=== PATIENT | male | born 1960 | race Caucasian/White ===

== ENCOUNTER 2021-11-13 12:30 | Outpatient (CLI) | payer OTHER, SELFPAY ==
--- NOTE | ~2021-11-13 | MR_ITS ---
EXAMINATION: MR brain/brain stem wo/w con DATE: 11/13/2021 13:34 INDICATION: Lung mass. TECHNIQUE: Magnetic resonance imaging (MRI) of the brain and brainstem was performed without and with 19 mL MultiHance intravenous contrast. Sequences included sagittal and axial T1-weighted FSE, axial diffusion-weighted FS EPI, axial T2*-weighted GRE, axial T2-weighted FLAIR Propeller, and axial T2-we ighted Propeller. Postcontrast sequences included axial, sagittal, and coronal T1-weighted FSE. Appar ent diffusion coefficient (ADC) maps were created. COMPARISON: None. FINDINGS: There is chronic encephalomalacia in the central myranda with relative sparing of the corticos heavenly tracts. There are scattered areas of nonspecific increased T2-weighted signal intensity in the cerebral white matter, which is within normal limits for the patient's age. There is no intracranial hemorrhage, acute infarction, or abnormal intracranial mass lesion. The ventricles are normal in size . There is mucosal thickening in the paranasal sinuses. The orbits are normal. The mastoid air cells are normal. IMPRESSION: 1. No evidence of metastatic disease. 2. 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 Reviewed, dictated and finalized at location A. NCT PROFESSOR OF VOICE IMPRESSION: 1. No evidence of metastatic disease. 2. 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
--- NOTE | ~2021-11-13 | PE_ITS ---
EXAMINATION: PET skull to mid thigh DATE: 11/13/2021 15:11 INDICATION: Lung mass TECHNIQUE: Blood glucose level was 81 mg/dL. 11.629 mCi of 18-fluorodeoxyglucose (18-FDG) was adminis tered i.v. Low dose computed tomography (CT) images were acquired from the base of the brain to the p roximal thighs for attenuation correction and anatomic localization. Positron emission tomography (PE T) images were acquired in the same distribution beginning 50-57 minutes after injection. Images incl uding fused PET/CT images were reconstructed in axial, coronal, and sagittal planes. Automated exposu re control technique was employed. The dose-length product was 906.11mGy-cm. COMPARISON: None FINDINGS: Head/neck: There is symmetric increased activity in the oral cavity, palatine tonsils, parotid glands, submandi bular glands, laryngeal muscles and ocular muscles without CT correlate, likely physiologic. Likely s inus disease associated mild increased uptake in the left maxillary sinus with corresponding mucosal thickening and small amount of dependently layering fluid. Mild increased Small focus of increased up take with maximal SUV of 3.5 situated in the right parotid gland. Correlation with recent brain MR da daryl 11/13/2021 demonstrates a 5 mm intraparotid lymph node with central fatty hilum at this location. No pathologically enlarged cervical lymphadenopathy or other suspicious foci of increased FDG uptake in the visualized head or neck. Chest: 6.5 x 5.7 cm FDG avid mass in the right lower lobe with maximal SUV of 18.9 consistent with primary b ronchogenic carcinoma. There are some FDG avid lymph nodes in the adjacent right hilum and subcarinal region with maximal SUV values of 15.9 and 10.2 respectively. There is likely secondary postobstruct anthony atelectasis at the anterobasilar segment of the right lower lobe. Subtle tree-in-bud opacities in the basilar right lower lobe peripheral to the mass could represent additional atelectasis and/or po st obstructive pneumonia. Left lung is clear. No pleural effusion. Heart size is normal. Atherosclero tic coronary artery calcific lesions. No pericardial effusion. Thoracic aorta is normal in caliber. Abdomen/pelvis/proximal thighs: There are at least 14 hypodense FDG avid masses scattered throughout the liver consistent with metast atic disease. The largest measures approximately 4 cm in the left hepatic lobe with maximal SUV of 18 .5. Physiologic renal accumulation and excretion of FDG activity in the kidneys, bladder and along po rtions of ureters. Indeterminate 1.4 cm exophytic soft tissue density lesion arising from the upper p ole of the left kidney without evident corresponding FDG activity statistically most likely to repres ent a proteinaceous/hemorrhagic cyst. The gallbladder, pancreas, spleen and bilateral adrenal glands are normal. Mild uptake scattered throughout the bowels without radiologic correlate, also likely phy siologic. No other abnormal foci of increased FDG uptake or pathologically enlarged lymphadenopathy i n the abdomen, pelvis or proximal thighs. Musculoskeletal: There are multiple FDG avid likely metastatic bone lesions, several of which are occult on CT but sev eral with corresponding lytic lesions including at the right transverse process of L5, right pedicle of T2, left transverse process of T3 and the adjacent posterior left third rib, lateral left 11th rib with associated pathologic fracture. IMPRESSION: 1. Marked FDG uptake associated with a 6.5 x 5.7 cm right lower lobe mass concerning for primary bron chogenic carcinoma. 2. FDG avid right hilar and subcarinal lymph nodes along with multiple FDG avid hepatic masses and mu ltiple FDG avid bone lesions all consistent with metastatic disease. 3. Tree-in-bud pattern at the basilar right lower lobe peripheral to the mass which could represent p ostobstructive atelectasis and/or pneumonia.
[2021-11-13 13:03] LABS: Estimated Glomerular Filt Rate > 60
[2021-11-17 10:16] LABS: Glucose Point of Care 81 mg/dl (65-105)
== END 2021-11-13 12:31 | disposition home or self-care (01) ==
PROVIDERS: Visit Provider Internal Medicine Hematology & Oncology
DX: R91.8 Other nonspecific abnormal finding of lung field (principal)
CPT/HCPCS: 70553; 78815; A9552; A9577

== ENCOUNTER 2021-11-27 03:17 | Outpatient (CLI) | payer BC, SELFPAY ==
[2021-11-20 10:58] VITALS: BMI 31.1
--- NOTE | 2021-11-20 11:11 | PC.NURSE ---
Report to the Outpatient Waiting Room, entrance under the green pavilion located off [facility], at time 0900 on date 11/27/21. OR Time: 1100. - You will be asked a series of questions to screen for COVID 19 for your protection. - A mask is required within the hospital. - No visitors are allowed at this time. Patient visitors will be guided where to wait when not with patient. Preoperative COVID Testing Requirements: TO BRING COVID CARD DOS No COVID Test needed if: (proof is required; if not received patient will have Rapid Test prior to entry) - Patient has received COVID Vaccine at least 14 days prior to procedure date or - Patient has positive COVID test result within last 90 days of surgery date. COVID Test needed if above criteria is not met If not COVID vaccinated a COVID test must be conducted within 72 hours of surgery and patient is asked to isolate self from time of testing until procedure. You will go to the [facility] for your COVID testing. The [facility] is located at the corner of [address] [facility]. You will only be called if COVID results are positive and your surgeon may reschedule your elective surgery date. - No food OR DRINK FOR 6 HOURS PRIOR TO PROCEDURE Take the following medications with a SIP of water the morning of surgery: NONE Medications to discontinue per physician: ASPIRIN Date to take last dose: 11/20/21 Please no make-up, nail lao, hairspray, perfume, deodorant, or body powder the day of surgery. No jewelry (including any body piercings) or valuables the day of surgery, leave them at home. Please take a shower or bath the night before, or the morning of, surgery with an antibacterial soap. Wear comfortable, loose fitting clothing. - Jewelry must be removed prior to entering the operating room. Rings and piercings that are not removed may be cut off. - The hospital will not accept responsibility for valuables. - Please leave all valuables, including medications, at home the day of surgery. If you are going home after surgery, a licensed team truck driver must drive you home. - NO public transportation without another adult. - We recommend that an adult stay with you for 24 hours following discharge. - We also recommend that you do not drive, make important decision, drink alcoholic beverages, or take any drugs that were not prescribed by your health care provider for at least 24 hours after your discharge time. Follow any additional instructions given to you from your surgeon. Telephone instructions given to SEAN DIXON and asked if any additional questions and then verbalized understanding. Patient advised to call surgeon office or pre surgery nurse liaison [phone] if any additional questions.
--- NOTE | 2021-11-26 17:08 | SUR.PREOP ---
patient was called to arrive at 830 on Nov 27 for appointment
[2021-11-27] VITALS (7 sets, daily range): BP systolic 144–160; BP diastolic 70–85; PULSE 78–86; RESP 16; BMI 31.2
--- NOTE | ~2021-11-27 | US_ITS ---
EXAMINATION: US biopsy liver DATE: 11/27/2021 10:53 INDICATION: Liver mass. TECHNIQUE: The procedure including the risks, benefits, and alternatives was discussed with the patie nt. Risks discussed included bleeding and infection. The patient understood the risks and agreed to p roceed. The skin overlying the left hepatic lobe was prepped and draped in usual sterile fashion. An esthetic was administered with 1% lidocaine subcutaneously. An 18 gauge core biopsy needle was then used to obtain 3 core biopsy specimens under continuous sonographic guidance. The entry site was jack an and dressed. There were no immediate complications. FINDINGS: Ultrasound images demonstrate the needle in a 3.7 cm mass in left hepatic lobe. IMPRESSION: 1. Ultrasound-guided core needle biopsy of a mass in left hepatic lobe. Reviewed, dictated and finalized at location A. CULTURAL EXTENSION EDUCATOR
[2021-11-27 09:57] LABS: Mean Platelet Volume 8.8 fl (7.4-10.4); Platelet Count Result 293 k/mm3 (150-375)
[2021-11-27 10:01] LABS: INR 1.1; Prothrombin Time 13.7 Seconds (11.1-14.7)
[2021-11-27] MEDS: IBUPROFEN 600 MG TABLET PO (11:08)
--- NOTE | 2021-11-27 14:28 | SUR.PHASEII ---
[address] murry on patient status. vital signs stable, room air, no pain or drainage from biopsy site. dr murry is ok for patient to be discharged early.
== END 2021-11-27 14:25 | disposition home or self-care (01) ==
PROVIDERS: PCP Pediatrics; Visit Provider Radiology Diagnostic Radiology
DX: C22.8 Malignant neoplasm of liver, primary, unspecified as to type (principal); R16.0 Hepatomegaly, not elsewhere classified
CPT/HCPCS: 36415; 47000; 76942; 85049; 85610; 88307; 88342; A9270

== ENCOUNTER 2021-12-09 01:23 | Day surgery (SDC) | payer BC, SELFPAY ==
[2021-12-08 09:19] VITALS: BMI 31.2
--- NOTE | 2021-12-08 09:28 | PC.NURSE ---
Report to the Outpatient Waiting Room, entrance under the green pavilion located off [facility], at time 1100 on date 12/09/21. OR Time: 1300. - You will be asked a series of questions to screen for COVID 19 for your protection. - A mask is required within the hospital. - No visitors are allowed at this time. Preoperative COVID Testing Requirements: No COVID Test needed if: (proof is required; if not received patient will have Rapid Test prior to entry) - Patient has received COVID Vaccine at least 14 days prior to procedure date or - Patient has positive COVID test result within last 90 days of surgery date. COVID Test needed if above criteria is not met Patients may have clear liquids (water, carbonated beverages, clear teas, apple juice) until 3 hours prior to surgery with a maximum of 20 ounces. - No food from midnight until time of surgery Take the following medications with a SIP of water the morning of surgery: INHALER (IF NEEDED), FLUOXETINE, GABAPENTIN, PAIN PILL (IF NEEDED) Medications to discontinue per physician: VITAMINS/SUPPLEMENTS Date to take last dose: NO MORE UNTIL AFTER SURGERY Please no make-up, nail yakut, hairspray, perfume, deodorant, or body powder the day of surgery. No jewelry (including any body piercings) or valuables the day of surgery, leave them at home. Please take a shower or bath the night before, or the morning of, surgery with an antibacterial soap. Wear comfortable, loose fitting clothing. - Jewelry must be removed prior to entering the operating room. Rings and piercings that are not removed may be cut off. - The hospital will not accept responsibility for valuables. - Please leave all valuables, including medications, at home the day of surgery. If you are going home after surgery, a licensed taxicab driver must drive you home. - NO public transportation without another adult. - We recommend that an adult stay with you for 24 hours following discharge. - We also recommend that you do not drive, make important decision, drink alcoholic beverages, or take any drugs that were not prescribed by your health care provider for at least 24 hours after your discharge time. Follow any additional instructions given to you from your surgeon. Telephone instructions given to SEAN DIXON and asked if any additional questions and then verbalized understanding. Patient advised to call surgeon office or pre surgery nurse liaison [phone] if any additional questions.
--- NOTE | 2021-12-08 13:40 | P.PNAN_ITS ---
Anes - Initial Pre Proc Eval Procedure: Operation Date: 12/09/21 13:00 Proposed Procedures p Insertion Carito Cath - Ainsley Latif MD Date/Time: 12/08/21 13:40 Surgeon: Ainsley Latif MD Pre Op Diagnosis: non small cell lung cancer Patient Data Age: 61 Gender: M Height: 1.75 m Weight: 96 kg Allergies Allergy/AdvReac Type Severity Reaction Status Date / Time No Known Allergies Allergy Verified 12/09/21 11:20 Home Medications Medication Instructions Recorded Confirmed Type albuterol sulfate 2 puff INHALATION HS 11/20/21 12/09/21 History aspirin [Baby Aspirin] 81 mg PO DAILY 11/20/21 12/09/21 History atorvastatin 10 mg PO DAILY 11/20/21 12/09/21 History calcium carbonate [Calcium 500] 500 mg PO BID 11/20/21 12/09/21 History cholecalciferol (vitamin D3) 25 mcg PO DAILY 11/20/21 12/09/21 History [Vitamin D3] docusate sodium [Dulcolax Stool 100 mg PO DAILY PRN 11/20/21 12/09/21 History Softener (dss)] enalapril maleate 20 mg PO BID 11/20/21 12/09/21 History esomeprazole magnesium 40 mg PO DAILY 11/20/21 12/09/21 History fluoxetine 20 mg PO DAILY 11/20/21 12/09/21 History gabapentin 100 mg PO TID 11/20/21 12/09/21 History hydrocodone-acetaminophen 1 tablet PO Q4H PRN 11/20/21 12/09/21 History ibuprofen 600 mg PO Q6H PRN 11/20/21 12/09/21 History multivitamin 1 tablet PO DAILY 11/20/21 12/09/21 History oxycodone [OxyContin] 10 mg PO BID 11/20/21 12/09/21 History Patient hx anesthesia problems: none Family hx anesthesia problems: none Results Review: All pre-operative results and documents have been reviewed as part of the pre-operative evaluation. PENDING SALE TO [facility] Past Medical History Medical History Anxiety Chronic GERD Chronic narcotic use Depression HTN (hypertension) Hyperlipidemia Lung cancer Obesity Osteoarthritis Smoker Social History Social History (System 04/22/20 @ 08:22 by Demetrius Hunt) Smoking packs per day: 1 Smoking cigarettes per day: 20.0 Years smoked: 35 Smoking pack-years: 35.00 Smoking status: Current every day smoker Tobacco type: cigarettes Alcohol intake: former Alcohol use details: QUIT 2015 Substance use: never Substance use type: does not use Living arrangements: with family Spiritual care concerns: No Anes - Eval Final PreProcedure Day of Procedure 12/08/21 13:40 Patient weight: obese Heart: regular rate and rhythm Lungs: clear to auscultation and normal air movement Airway: Mallampati scale class II Neurological: alert and oriented Last oral intake: >/= 8 hours ASA classification: III Emergent: no Anesthetic plan: proceed Anesthesia type and monitoring: general GIVS and LMA Results Review: All pre-operative results and documents have been reviewed as part of the pre-operative evaluation. Informed Consent: The patient's anesthetic plan and its attendant risks and benefits were discussed with the patient/family/POA. Questions were solicited and answers provided to the satisfaction of the patient/family/POA.
--- NOTE | ~2021-12-09 | XR_ITS ---
EXAMINATION: XR fl guide central line place EXAM DATE: 12/09/2021 14:27 INDICATION: Carito catheter insertion. TECHNIQUE: Fluoroscopy used during portacatheter insertion performed by Dr. Ainsley Latif MD. Ra diologist was not present for the imaging or procedure. Total fluoroscopic time of 20 seconds. The DAP for this procedure was 0.102 mGym2. A total of 3 images sent to PACS from the exam. FINDINGS: There is a left-sided portacatheter, tip projecting over the cavoatrial junction. Correla te with procedure note. IMPRESSION: Fluoroscopy used during left-sided portacatheter insertion. Reviewed, dictated and finalized at location G. MAKER CUSTOM
--- NOTE | ~2021-12-09 | XR_ITS ---
EXAMINATION: XR chest port-a-cath/central DATE: 12/09/2021 14:57 INDICATION: Port catheter insertion TECHNIQUE: frontal view of the chest was obtained. COMPARISON: PET/CT dated 11/13/2021 FINDINGS: Left internal jugular central venous port catheter with distal tip at the high right atrium. There is an S-shaped undulation the course of the catheter without evident flattening of the catheter where i t passes between the anterior left first rib and medial left clavicle. This can predispose towards pi nch off syndrome with potential for catheter fracture and embolization. Focal opacity in the right lower lobe corresponding to a previous noted FDG avid mass concerning for primary bronchogenic carcinoma and likely associated partial collapse of the right lower lobe with ca udal retraction of the right hilum there is some enlargement of the right hilum suggestive of metasta tic hilar lymphadenopathy. No pleural effusion or pneumothorax. The cardiomediastinal silhouette is n ormal. IMPRESSION: 1. Left subclavian central venous port catheter with distal tip at the high right atrium. See discuss ion above regarding the S-shaped course of the catheter where it passes between the left first rib an d clavicle. 2. Opacities in the right lower lung zone consistent with primary bronchogenic carcinoma and associat ed right lower lobar atelectasis. 3. Enlargement of the right hilum consistent with metastatic lymphadenopathy. Reviewed, dictated and finalized at location [facility]. [facility] IMPRESSION: 1. Left subclavian central venous port catheter with distal tip at the high rig ht atrium. See discussion above regarding the S-shaped course of the catheter w here it passes between the left first rib and clavicle. 2. Opacities in the right lower lung zone consistent with primary bronchogenic carcinoma and associated right lower lobar atelectasis. 3. Enlargement of the right hilum consistent with metastatic lymphadenopathy.
[2021-12-09 11:57] VITALS: BP 149/102; PULSE 93; RESP 16; TEMP 37.2; O2SAT 95
[2021-12-09] MEDS: LACTATED RINGERS 1,000 ML 30 ML IV CONT (12:00)
--- NOTE | 2021-12-09 13:21 | PM.IMHP ---
H&P: HPI History of Present Illness Date/Time: 12/09/21 13:21 Pt is a 61 y/o M presenting for VAD placement. 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 Pt is going to undergo chemoradiation. Pt denies any previous central venous catheterization. Chief Complaint: metastatic lung cancer Review of Systems Review of Systems: All systems reviewed & are unremarkable except as noted in HPI and below PMFSH Past Medical History Medical History Anxiety Chronic GERD Chronic narcotic use Depression HTN (hypertension) Hyperlipidemia Lung cancer Obesity Osteoarthritis Smoker Social History Social History Smoking packs per day: 1 Smoking cigarettes per day: 20.0 Years smoked: 35 Smoking pack-years: 35.00 Smoking status: Current every day smoker Tobacco type: cigarettes Alcohol intake: former Alcohol use details: QUIT 2015 Substance use: never Substance use type: does not use Living arrangements: with family Spiritual care concerns: No Meds Home Medications and Allergies Home Medications Medication Instructions Recorded Confirmed Type albuterol sulfate 2 puff INHALATION HS 11/20/21 12/09/21 History aspirin [Baby Aspirin] 81 mg PO DAILY 11/20/21 12/09/21 History atorvastatin 10 mg PO DAILY 11/20/21 12/09/21 History calcium carbonate [Calcium 500] 500 mg PO BID 11/20/21 12/09/21 History cholecalciferol (vitamin D3) 25 mcg PO DAILY 11/20/21 12/09/21 History [Vitamin D3] docusate sodium [Dulcolax Stool 100 mg PO DAILY PRN 11/20/21 12/09/21 History Softener (dss)] enalapril maleate 20 mg PO BID 11/20/21 12/09/21 History esomeprazole magnesium 40 mg PO DAILY 11/20/21 12/09/21 History fluoxetine 20 mg PO DAILY 11/20/21 12/09/21 History gabapentin 100 mg PO TID 11/20/21 12/09/21 History hydrocodone-acetaminophen 1 tablet PO Q4H PRN 11/20/21 12/09/21 History ibuprofen 600 mg PO Q6H PRN 11/20/21 12/09/21 History multivitamin 1 tablet PO DAILY 11/20/21 12/09/21 History oxycodone [OxyContin] 10 mg PO BID 11/20/21 12/09/21 History Allergies Allergy/AdvReac Type Severity Reaction Status Date / Time No Known Allergies Allergy Verified 12/09/21 11:20 Vital Signs Vital Signs - 24 hr 12/09/21 11:57 Temperature 37.2 C Pulse Rate 93 Respiratory Rate 16 Blood Pressure 149/102 H Pulse Oximetry 95 Exam Const: General: cooperative, comfortable and no acute distress Nutritional Appearance: overweight Orientation/consciousness: patient oriented x3 Neck: Neck: normal visual inspection, full ROM and no lymphadenopathy Chest: Chest palpation & inspection: normal inspection of the chest Resp: Effort & Inspection: normal respiratory effort Auscultation: diminished lung sounds Cardio: Rate: regular rate Rhythm: regular rhythm GI: Inspection: normal to inspection GI Palp: No abdominal tenderness, Yes Soft to palpation and No Tenderness to palpation present (GI) Assessment and Plan Assessment and plan (1) Lung cancer: Code(s): C34.90 - Malignant neoplasm of unspecified part of unspecified bronchus or lung Status: Acute Assessment and Plan: plan for chemoradiation, will place VAD today on L side
--- NOTE | 2021-12-09 13:24 | WPDHPUPDATE1 ---
History and Physical Update Update Date/Time: 12/09/21 13:24 History and Physical has been reviewed, including an updated exam of the patient. There are NO changes in the patient's condition. Risks, benefits, and alternatives have been discussed and questions answered. Patient agrees to proceed with procedure.
[2021-12-09] MEDS: ceFAZolin 2 GM/D5W 50 ML 2 GM/50 ML BAG IVPB (13:49)
[2021-12-09] MEDS: BUPIVACAINE/EPINEPHRINE 0.5% 30 ML VIAL INFILTRATE (14:35)
[2021-12-09] MEDS: HEPARIN SODIUM 5,000 UNITS/ML VIAL 5000 UNITS IRRIGATION (14:36)
--- NOTE | 2021-12-09 14:36 | W.PM.PROC2 ---
Procedure Note - Detailed Date of Procedure 12/09/21 Pre-op Diagnosis metastatic R lung cancer Post-op Diagnosis same Procedure Performed placement of left subclavian venous access device under fluoroscopic guidance Surgeon Ainsley Latif MD Anesthesia general Indications 61 y/o M with metastatic right lung cancer with anticipated chemo radiation needing access Findings first stick L SCV Description of Procedure Patient was brought into the operating room and placed in the supine position. After adequate induction of general anesthesia, the patient was prepped and draped in normal sterile fashion. Time-out was then done to verify the patient's identity, as well as the procedure being performed. I began by making a small incision in the left chest, I then gained access into the left subclavian vein with an 18 gauge needle. I then placed the guidewire into the vein and confirmed placement via fluoroscopic guidance. I then locally anesthetized the area in the left chest. I then enlarged the incision around the guidewire including making a subcutaneous pocket inferiorly to allow placement of the port itself. I then placed a dilating sheath over the guidewire into the left subclavian vein via sterile Seldinger technique. This was once again done and confirmed via fluoroscopic guidance. I then removed the dilator and the guidewire, now just leaving the sheath in the vein. I then fed the previously flushed catheter into the left subclavian vein under fluoroscopic guidance. At approximately 15 cm, the catheter was noted to be near the atrial caval junction. I then peeled away the sheath, now just leaving the catheter in the vein. I then was able to easily draw and flush from the catheter. The catheter was cut to fit and attached to the port itself. The port was placed into the previously made subcutaneous pocket and sutured in with 0 Ethibond suture. Final fluoroscopic view showed the termination of the catheter at the atrial caval junction with a nice smooth curvature back to the port itself. I was able to gain access to the port with a Noyola needle and was able to easily draw and flush from the port. I then flushed 4 cc of a final heparin flush into the port. The incision was closed with 3 0 Vicryl suture in the subcutaneous tissue and the skin was closed with 4 O Monocryl subcuticular suture. Dermabond was then placed on wound. The patient tolerated the procedure well and will be sent to the recovery room in stable condition. Implants L SCV VAD Estimated Blood Loss 5 Drains No Packing No Pathology none sent Complications No immediate complications Condition stable Disposition PACU
[2021-12-09] MEDS: HEPARIN SODIUM, PORCINE 10,000 UNITS/10 ML VIAL 10000 UNITS IV PUSH (14:37)
[2021-12-09 14:40] VITALS: BP 111/59; PULSE 81; RESP 16; O2SAT 94
[2021-12-09 15:10] VITALS: BP 148/67; PULSE 82; RESP 18; O2SAT 94
--- NOTE | 2021-12-09 15:18 | SUR.PHASEII ---
CALLED DR MAYFIELD, READ HIM CXR REPORT FINDINGS. OK TO USE AND GIVE PO FLUIDS
[2021-12-09 15:40] VITALS: BP 143/72; PULSE 84; RESP 18; O2SAT 93
--- NOTE | 2021-12-09 16:01 | SUR.PHASEII ---
1453; PT RESTING QUIETLY ON STRETCHER. SAO2 DROPS TO 89% BRIEFLY THEN RISES BACK TO 92-94%. O2 2L NC APPLIED. 1515; PT AWAKE AND ALERT. DENIES PAIN OR SOB. UP TO RECLINER. 1520; O2 REMOVED 1530; SAO2 92-94% ON ROOM AIR.
== END 2021-12-09 16:17 | disposition home or self-care (01) ==
PROVIDERS: PCP Pediatrics; Visit Provider Surgery
PROC: (CPT 36561; principal; 2021-12-09 13:00)
DX: C34.31 Malignant neoplasm of lower lobe, right bronchus or lung (principal); C78.7 Secondary malignant neoplasm of liver and intrahepatic bile duct; C79.51 Secondary malignant neoplasm of bone; I10 Essential (primary) hypertension; E78.5 Hyperlipidemia, unspecified; K21.9 Gastro-esophageal reflux disease without esophagitis; F41.8 Other specified anxiety disorders; F17.210 Nicotine dependence, cigarettes, uncomplicated; E66.9 Obesity, unspecified; Z68.30 Body mass index [BMI] 30.0-30.9, adult; Z79.891 Long term (current) use of opiate analgesic; Z79.51 Long term (current) use of inhaled steroids; Z79.82 Long term (current) use of aspirin
CPT/HCPCS: 36561; 77001; C1788; J0690; J1644; J2250; J2704; J3010; J7030; J7120